=== PATIENT | male | born 2000 | race Two or more races ===

== ENCOUNTER 2018-11-04 11:05 | Emergency (ER) | payer MEDICAID ==
[~2018-11-04] VITALS: Ht 182.9 cm; Wt 49.0 kg
[~2018-11-04 11:05] MED LIST: DIPH25CA83 PO
[2018-11-04 11:19] VITALS: BP 127/94
[2018-11-04] MEDS ORDERED: ZIPR20CA2 PO (12:56)
== END 2018-11-04 13:06 | disposition home or self-care (01) ==
LOC: ER 11:06
DX: R44.0 Auditory hallucinations (principal); F12.90 Cannabis use, unspecified, uncomplicated; Z79.899 Other long term (current) drug therapy
CPT/HCPCS: 99284